=== PATIENT | female | born 1965 | race Caucasian/White ===

== ENCOUNTER 2020-07-30 19:19 | Emergency (ER) | payer MEDICAID ==
[~2020-07-30] VITALS: Ht 172.7 cm; Wt 91.6 kg
--- NOTE | 2020-07-30 19:59 | NUR ---
pt to room from lobby
--- NOTE | 2020-07-30 20:00 | NUR ---
Walked patient back to room. Set of vitals taken. Urine cup provided.
--- NOTE | 2020-07-30 20:33 | NUR ---
CC OF ABD PAIN IN [facility]Q X 3 DAYS. PT WAS INSTRUCTED BY WORK TO SEE A DOCTOR BEFORE RETURNING TO WORK.
[2020-07-30 21:06] LABS: BASOPHILS % (AUTO) 1 % (0-1); EOSINOPHILS % (AUTO) 2 % (1-7); LYMPHOCYTES % (AUTO) 42 % (22-44); MEAN CORPUSCULAR HEMOGLOBIN 32.7 pg (27.0-34.8); MEAN CORPUSCULAR HGB CONC 33.9 g/dL (32.4-35.8); MEAN PLATELET VOLUME 8.5 fL (7.4-10.4); MONOCYTES % (AUTO) 6 % (2-9); NEUTROPHILS % (AUTO) 50 % (42-75); PLATELET COUNT 285 x10^3/uL (130-400); RED BLOOD COUNT 4.69 x10^6/uL (3.82-5.3); RED CELL DISTRIBUTION WIDTH 12.7 % (9.6-15.2)
[2020-07-30 21:11] LABS: ALANINE AMINOTRANSFERASE 18 U/L (12-78); ALBUMIN 3.6 g/dL (3.4-5.0); ANION GAP 2 mmol/L (5-15); CALCIUM 9.2 mg/dL (8.5-10.1); CHLORIDE 107 mmol/L (98-107); CREATININE 1.03 mg/dL (0.55-1.02)
[2020-07-30 21:13] LABS: ALKALINE PHOSPHATASE 104 U/L (45-117); BILIRUBIN,TOTAL 0.3 mg/dL (0.2-1.0); MD NO; TOTAL PROTEIN 7.3 g/dL (6.4-8.2)
--- NOTE | 2020-07-30 21:34 | NUR ---
PT RESTING IN [facility], NO NEEDS AT THIS TIME
[2020-07-30 23:00] VITALS: BP 141/87
== END 2020-07-30 23:31 | disposition home or self-care (01) ==
LOC: ED 20:42
DX: R07.81 Pleurodynia (principal); R07.9 Chest pain, unspecified; I51.7 Cardiomegaly; F17.210 Nicotine dependence, cigarettes, uncomplicated
CPT/HCPCS: 36415; 71045; 80053; 83690; 85025; 85379; 93005; 99285; 99406